=== PATIENT | female | born 1975 | race Caucasian/White ===

== ENCOUNTER → 2020-07-11 15:19 | Outpatient (CLI) | payer OTHER, SELFPAY ==
--- NOTE | ~2020-07-11 | MM_ITS ---
EXAMINATION: MM screening joshua BI w ashly HISTORY: Screening TECHNIQUE: Craniocaudal and mediolateral oblique 3-D tomosynthesis images were obtained and synthetic 2-D images were generated. CAD analysis was submitted and interpreted. COMPARISON: Comparison to multiple prior studies sequentially, with oldest reviewed study dated 04/25. BREAST PARENCHYMAL COMPOSITION: There are scattered areas of fibroglandular density. FINDINGS: There is no evidence of suspicious mass, calcification, or architectural distortion to sugg est malignancy in either breast. There has been no suspicious interval change. IMPRESSION: 1. No mammographic evidence of malignancy. 2. Recommend routine screening mammography in one year. BI-RADS Category 1: Negative Reviewed, dictated and finalized at location A. 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
== END ==
PROVIDERS: PCP Internal Medicine; Visit Provider Nurse Practitioner
DX: Z12.31 Encounter for screening mammogram for malignant neoplasm of breast (principal)
CPT/HCPCS: 77063; 77067

== ENCOUNTER → 2020-10-25 15:49 | Outpatient (CLI) | payer OTHER, SELFPAY ==
--- NOTE | ~2020-10-25 | US_ITS ---
EXAMINATION: US soft tissue LE RT EXAM DATE: 10/25/2020 16:18 INDICATION: R22.9 - Localized swelling, mass and lump, unspecified. TECHNIQUE: Multiple grayscale and Doppler images of right thigh mass lump were obtained (by a techno logist who performed the scan) and subsequently reviewed. There is no prior study for comparison. FINDINGS: Scanning in the area of concern demonstrated a focal subcutaneous region which was isoechoic to the f at, probably also fat but could be an encapsulated lipoma measuring 2.9 x 1.2 x 2.8 cm. Another small er region was also measured also directly subcutaneously at 1.2 x 0.6 x 1.2 cm, minimally hyperechoic compared to the other surrounding fat, also most likely a lipoma. IMPRESSION: 1. Right thigh 2 focal regions which could be encapsulated subcutaneous lipomas. Reviewed, dictated and finalized at location A. IMPRESSION: 1. Right thigh 2 focal regions which could be encapsulated subcutaneous lipoma s.
== END ==
PROVIDERS: PCP Internal Medicine; Visit Provider Nurse Practitioner
DX: R22.9 Localized swelling, mass and lump, unspecified (principal)
CPT/HCPCS: 76882

== ENCOUNTER 2023-04-20 07:05 | Day surgery (SDC) | payer OTHER, SELFPAY ==
[2023-02-27 08:21] VITALS: BMI 34.7
--- NOTE | 2023-04-20 08:36 | P.HP_ITS ---
History of Present Illness History of Present Illness Consent: Risks, benefits, and alternatives have been discussed and questions answered. Patient agrees to proceed with procedure. Chief complaint: Family history of colon cancer Narrative: Patricia Pathak is a 48 year old female Presents for screening colonoscopy. His father has had colon cancer. Her mother has had colon polyps. Patient states that her current weight appetite and bowel movements are normal. She denies abdominal pain. She has had no bleeding. Patient presents today for neoplasia screening Review of Systems Review of Systems: review of systems is noncontributory. [facility] Past Medical History Medical History Benign paroxysmal vertigo, unspecified ear History of kidney stones Hypertension Surgical History Surgical History History of partial hysterectomy 2007 Family History Family History Father Hypertension Carcinoma of colon Acute myocardial infarction Renal stones TIA (transient ischemic attack) Diabetes mellitus Mother Breast cancer Diabetes mellitus Hypertension Social History Social History Smoking status: Former smoker Tobacco type: cigarettes Smoking end date: 08/03/02 Alcohol intake: current Substance use: unknown Substance use type: does not use Living arrangements: with family Occupation/Education: occupation 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 Vital signs stable. HEENT T exam is unremarkable. Patient lungs are clear to auscultation and to percussion. Heart is without murmur or extra sounds. Abdomen bowel sounds are present soft nontender with no organomegaly. Digital external rectal exam is normal. Assessment and Plan Assessment and plan (1) Family history of colon cancer in father: Code(s): Z80.0 - Family history of malignant neoplasm of digestive organs Status: Acute Assessment and Plan: Patient's father has had colon cancer. Her mother has had colon polyps. Plan for surveillance colonoscopy now. Consider follow-up colonoscopy at 5 year intervals in the future.
--- NOTE | 2023-04-20 09:22 | WPDANESEPPF ---
Anes - Initial Pre Proc Eval Procedure: Operation Date: 04/20/23 10:00 Proposed Procedures p Screening Colonoscopy - Roque Moctezuma MD Date/Time: 04/20/23 09:22 Surgeon: Roque Moctezuma MD Pre Op Diagnosis: Family history of colon cancer Patient Data Age: 48 Gender: F Height: 1.55 m Weight: 75.1 kg Allergies Allergy/AdvReac Type Severity Reaction Status Date / Time No Known Allergies Allergy Verified 04/20/23 07:32 Home Medications Medication Instructions Recorded Confirmed Type lisinopril 10 mg tablet 10 mg PO DAILY #90 tabs 03/31/22 04/20/23 Rx sodium,potassium,mag sulfates 17.5 See Rx Instructions PO .COMPLEX 02/27/23 04/20/23 Rx gram-3.13 gram-1.6 gram oral soln #354 mL (Suprep Bowel Prep Kit) Patient hx anesthesia problems: none Family hx anesthesia problems: none Results Review: All pre-operative results and documents have been reviewed as part of the pre-operative evaluation. [facility] Past Medical History Medical History Benign paroxysmal vertigo, unspecified ear History of kidney stones Hypertension Surgical History Surgical History History of partial hysterectomy 2007 Family History Family History Father Hypertension Carcinoma of colon Acute myocardial infarction Renal stones TIA (transient ischemic attack) Diabetes mellitus Mother Breast cancer Diabetes mellitus Hypertension Social History Social History Smoking status: Former smoker Tobacco type: cigarettes Smoking end date: 08/03/02 Alcohol intake: current Substance use: unknown Substance use type: does not use Living arrangements: with family Occupation/Education: occupation 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 Informed Consent: The patient's anesthetic plan and its attendant risks and benefits were discussed with the patient/family/POA. Questions were solicited and answers provided to the satisfaction of the patient/family/POA.
[2023-04-20 09:24] VITALS: BP 137/97; PULSE 70; RESP 16; TEMP 36.3; O2SAT 100
[2023-04-20] MEDS: LACTATED RINGERS 1,000 ML 150 ML IV CONT (10:05)
[2023-04-20 10:11] VITALS: BP 129/88; PULSE 71; RESP 16; O2SAT 100
[2023-04-20 10:21] VITALS: BP 139/95; PULSE 63; RESP 16; O2SAT 100
[2023-04-20 10:31] VITALS: BP 140/90; PULSE 62; RESP 16; O2SAT 100
--- NOTE | 2023-04-20 10:33 | WPDANESPN ---
Anes - Prog Note Post-Op Date/Time: 04/20/23 10:33 Cardiovascular status: normal Respiratory status: normal Airway patency: baseline Mental status: baseline Post-Op hydration status: normal Vital Signs: Last Vital Signs Temp 36.3 C L 04/20/23 09:24 Pulse 71 04/20/23 10:11 Resp 16 04/20/23 10:11 BP 129/88 04/20/23 10:11 Pulse Ox 100 04/20/23 10:11 O2 Del Method Room Air 04/20/23 10:11 Pain Score (VAS): 0 Patient Feedback: Patient satisfied with anesthetic care.
== END 2023-04-20 10:40 | disposition home or self-care (01) ==
PROVIDERS: PCP Internal Medicine; Visit Provider Internal Medicine Gastroenterology
PROC: 0DJD8ZZ Inspection of Lower Intestinal Tract, Via Natural or Artificial Opening Endoscopic (ICD-10-PCS; CPT 45378; principal; 2023-04-20 10:00)
DX: Z80.0 Family history of malignant neoplasm of digestive organs (principal); K64.8 Other hemorrhoids; Z83.71 Family history of colonic polyps
CPT/HCPCS: 45378

== ENCOUNTER 2023-09-10 09:14 | Outpatient (CLI) | payer OTHER, SELFPAY ==
--- NOTE | ~2023-09-10 | US_ITS ---
Limited Abdominal Sonogram: Real-time sonographic imaging of the right upper quadrant was performed. Clinical History: Transaminitis Findings: The liver appears normal with no evidence of mass lesion or bile duct dilatation. Main por len vein demonstrates normal direction of flow. The gallbladder is well distended, and appears normal with no evidence of gallstone or wall thickening. The common bile duct measures 3 mm. The visualize d pancreas, aorta, and IVC are unremarkable. Impression: No significant abnormality seen. Reviewed, dictated and finalized at location . RVISOR MATRIX Impression: No significant abnormality seen.
== END 2023-09-10 09:15 ==
LOC: GOSHIMG 09:15
PROVIDERS: PCP Nurse Practitioner; Visit Provider Nurse Practitioner
DX: R74.01 Elevation of levels of liver transaminase levels (principal)
CPT/HCPCS: 76705

== ENCOUNTER 2024-01-01 14:58 | Outpatient (CLI) | payer OTHER, SELFPAY ==
--- NOTE | ~2024-01-01 | MM_ITS ---
EXAMINATION: MM screening joshua BI w ashly HISTORY: Screening TECHNIQUE: Craniocaudal and mediolateral oblique 3-D tomosynthesis images were obtained and synthetic 2-D images were generated. CAD analysis was submitted and interpreted. COMPARISON: Comparison to multiple prior studies sequentially, with oldest reviewed study dated 11/20. BREAST PARENCHYMAL COMPOSITION: Not dense: There are scattered areas of fibroglandular density. FINDINGS: There is no evidence of suspicious mass, calcification, or architectural distortion to sugg est malignancy in either breast. There has been no suspicious interval change. IMPRESSION: 1. No mammographic evidence of malignancy. 2. Recommend routine screening mammography in one year. BI-RADS Category 1: Negative Reviewed, dictated and finalized at location B.
== END 2024-01-01 14:59 ==
LOC: MICIMG 14:58
PROVIDERS: PCP Nurse Practitioner; Visit Provider Nurse Practitioner
DX: Z12.31 Encounter for screening mammogram for malignant neoplasm of breast (principal)
CPT/HCPCS: 77063; 77067

== ENCOUNTER 2025-04-12 14:37 | Outpatient (CLI) | payer OTHER, SELFPAY ==
--- NOTE | ~2025-04-12 | MM_ITS ---
EXAMINATION: MM screening joshua BI w ashly HISTORY: Screening TECHNIQUE: Craniocaudal and mediolateral oblique 3-D tomosynthesis images were obtained and synthetic 2-D images were generated. CAD analysis was submitted and interpreted. COMPARISON: Comparison to multiple prior studies sequentially, with oldest reviewed study dated , 11/20/2014 BREAST PARENCHYMAL COMPOSITION: There are scattered areas of fibroglandular density. FINDINGS: There is no evidence of suspicious mass, calcification, or architectural distortion to suggest malignancy in either breast. IMPRESSION: 1. No mammographic evidence of malignancy. 2. Recommend routine screening mammography in one year. BI-RADS Category 1: Negative Reviewed, dictated and finalized at location B.
== END 2025-04-12 14:38 | disposition home or self-care (01) ==
LOC: MICIMG 14:37
PROVIDERS: PCP Nurse Practitioner; Visit Provider Nurse Practitioner
DX: Z12.31 Encounter for screening mammogram for malignant neoplasm of breast (principal)
CPT/HCPCS: 77063; 77067